=== PATIENT | male | born 1985 | race African-American/Black ===

== ENCOUNTER 2021-11-13 11:32 | Emergency (ER) | payer OTHER ==
[2021-11-13] MEDS: HYDROmorphone 1 MG/ML 1 ML SYRINGE IM STA (13:41)
[2021-11-13] MEDS: KETOROLAC 15 MG/ML 1 ML VIAL IM STA (13:42)
[2021-11-13] MEDS: dexAMETHasone 2 MG TAB PO STA (13:42)
--- NOTE | 2021-11-13 13:49 | ED ---
General Adult HPI - General Chief complaint: Back Pain/Injury Stated complaint: Back pain radiating to left left Time Seen by Provider: 11/13/21 13:05 Source: patient Mode of arrival: wheelchair Limitations: no limitations - History of Present Illness Initial comments: Patient is a 36-year-old male with past medical history of back pain who presents emergency Department with reported back pain. States he is under the care of Dr. Bowman. Has been seeing him since August. He was found to have a herniated disc in his lumbar spine. He has been following up Dr. Bowman and has been on steroids. States that he took a 9 day course of Decadron and it really helped his symptoms. He just finished a course of couple of days ago in his back pain has reoccurred. He denies any bowel or bladder incontinence or retention. No weakness in his lower extremities. Pain does radiate around to his groin and down the back of his leg. No fevers. Denies history of drug use. No known trauma. No other alleviating, precipitating or modifying factors - Related Data Previous Rx's Medication Instructions Recorded Acetaminophen-Codeine 300-30mg 1 tab PO Q4H PRN #18 tablet 11/13/21 [Tylenol #3] Dexamethasone [Decadron] 6 mg PO DAILY #5 tablet 11/13/21 Allergies Allergy/AdvReac Type Severity Reaction Status Date / Time No Known Allergies Allergy Verified 11/13/21 13:06 Review of Systems ROS Statement: Those systems with pertinent positive or pertinent negative responses have been documented in the HPI. ROS Other: All systems not noted in ROS Statement are negative. Past Medical History Additional Past Medical History / Comment(s): back pain History of Any Multi-Drug Resistant Organisms: None Reported Past Surgical History: No Surgical Hx Reported Past Psychological History: No Psychological Hx Reported Smoking Status: Current every day smoker Past Alcohol Use History: None Reported Past Drug Use History: None Reported General Exam Limitations: no limitations General appearance: alert, in no apparent distress Head exam: Present: atraumatic, normocephalic, normal inspection Eye exam: Present: normal appearance, PERRL, EOMI. Absent: scleral icterus, conjunctival injection, periorbital swelling ENT exam: Present: normal exam, mucous membranes moist Neck exam: Present: normal inspection. Absent: tenderness, meningismus, lymphadenopathy Respiratory exam: Present: normal lung sounds bilaterally. Absent: respiratory distress, wheezes, rales, rhonchi, stridor Cardiovascular Exam: Present: regular rate, normal rhythm, normal heart sounds. Absent: systolic murmur, diastolic murmur, rubs, gallop, clicks GI/Abdominal exam: Present: soft, normal bowel sounds. Absent: distended, tenderness, guarding, rebound, rigid Rectal exam: Present: normal rectal tone Extremities exam: Present: normal inspection, full ROM, normal capillary refill. Absent: tenderness, pedal edema, joint swelling, calf tenderness Back exam: Present: normal inspection, other (normal ROM however flexion of the right hip causes significant pain) Neurological exam: Present: alert, oriented X3, CN II-XII intact Psychiatric exam: Present: normal affect, normal mood Skin exam: Present: warm, dry, intact, normal color. Absent: rash Course Vital Signs 11/13/21 11/13/21 13:04 16:26 Temperature 98.2 F 98.0 F Pulse Rate 96 92 Respiratory 16 20 Rate Blood Pressure 133/85 136/81 O2 Sat by Pulse 100 98 Oximetry Medical Decision Making - Medical Decision Making On arrival patient is placed into room 18. History and physical exam is performed. He is given 10 mg dexamethasone, 1 mg of Dilaudid and 30 mg Toradol. He is sent for a CT of his spine which does demonstrate a large left paracentral disc herniation with extrusion. Causes mild to moderate spinal canal stenosis. Patient's symptoms are all on his right side. He has no bowel or bladder incontinence or retention. No bowel or bladder incontinence. Patient is reevaluated and reports to marked improvement in his pain. He will be sent home on a short course of steroids. Patient also provided with Tylenol threes. We recommended that he follow-up with Dr. Baltazar or Dr. Carrillo. Return for any new or worsening symptoms. Patient agreed to this and he was discharged home ambulatory in stable condition Disposition Clinical Impression: Lumbar back pain, Herniated disc Disposition: HOME SELF-CARE Condition: Stable Instructions (If sedation given, give patient instructions): Acute Low Back Pain (ED) Additional Instructions: Please follow up with the spine doctors within 1 week. Return to the emergency room for any new or worsening symptoms Prescriptions: Dexamethasone [Decadron] 6 mg PO DAILY #5 tablet Acetaminophen-Codeine 300-30mg [Tylenol #3] 1 tab PO Q4H PRN #18 tablet PRN Reason: pain Is patient prescribed a controlled substance at d/c from ED?: Yes When asked, does pt state using other controlled substances?: No If prescribed controlled substance>3 days was MAPS reviewed?: Prescribed <3 Days If opioid is for acute pain is fill amount 7 days or less?: Yes If Rx opioid, was Start Talking consent form obtained?: Yes Referrals: None,Stated [Primary Care Provider] - 1-2 days Tyron Carrillo, [Doctor of Osteopathic Medicine] - 1-2 days Cynthia Truong, [Doctor of Osteopathic Medicine] - 1-2 days
--- NOTE | 2021-11-13 14:30 | CT ---
EXAMINATION TYPE: CT lumbar spine wo con DATE OF EXAM: 11/13/2021 COMPARISON: None HISTORY: 36-year-old male with back pain Back pain TECHNIQUE: Contiguous axial scanning of the lumbar spine without IV contrast. Coronal and sagittal re constructions performed. CT DLP: 779.1 mGycm Automated exposure control for dose reduction was used. FINDINGS: Vertebral body heights are preserved and alignment is maintained. There is mild disc height loss at L5-S1 with a large left paracentral disc herniation/extrusion which causes mild to moderate canal stenosis, left lateral recess stenosis with complete effacement of the traversing left S1 nerve root and also displacement of the traversing left S2 nerve root. Mild overa ll left neuroforaminal stenosis. At L4-L5, there is minimal bulging disc without significant spinal canal or neuroforaminal stenosis. No acute fracture of the lumbar spine. IMPRESSION: AT L5-S1, LARGE LEFT PARACENTRAL DISC HERNIATION/EXTRUSION WHICH CAUSES MILD TO MODERATE SPINAL CANAL STENOSIS AND LEFT LATERAL RECESS STENOSIS. THIS RESULTS IN COMPLETE EFFACEMENT OF THE TRAVERSING LEF T S1 NERVE ROOT AND ALSO DISPLACEMENT OF THE TRAVERSING LEFT S2 NERVE ROOT. MILD OVERALL LEFT NEUROFO RAMINAL STENOSIS.
[2021-11-13] MEDS: ACET/COD 300 MG/30 MG STARTER PACK 6 TAB BTL PO STA (16:25)
[2021-11-13 16:27] VITALS: BP 136/81; PULSE 92; RESP 20; TEMP 98
== END 2021-11-13 16:27 | disposition home or self-care (01) ==
LOC: EC 11:32
DX: M51.26 Other intervertebral disc displacement, lumbar region (principal); F17.200 Nicotine dependence, unspecified, uncomplicated
CPT/HCPCS: 72131; 99283; 96372 ×2; J1170; J8540; J1885

== ENCOUNTER 2023-10-16 09:33 | Emergency (ER) | payer BC ==
--- NOTE | 2023-10-16 09:48 | ED ---
General Adult HPI - General Source: patient, RN notes reviewed Mode of arrival: ambulatory Limitations: no limitations <Anton Gill - Last Filed: 10/16/23 09:48> <Bautista Knight - Last Filed: 10/16/23 13:11> - General Stated complaint: right upper side pain Time Seen by Provider: 10/16/23 09:48 - History of Present Illness Initial comments: 38-year-old male presents emergency Department chief complaint right flank pain. Patient states has been bothersome for several days. Patient states it hurts when he takes a deep breath or moves. Denies any trauma no rashes patient has no history kidney stones denies any dysuria hematuria. Patient has a nausea vomiting. (Anton Gill) This is a 38-year-old male who presents to the emergency department complaining of left mid back pain. Patient states he bends twists or turns it hurts worse. 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 Patient denies any shortness of breath. Patient denies any chest pain. Patient denies any recent fever chills or cough per patient denies any dysuria hematuria urinary frequency. Patient denies any abdominal pain. Patient denies nausea vomiting diarrhea. (Bautista Knight) - Related Data Home Medications Medication Instructions Recorded Confirmed Naproxen Sodium [Aleve] 440 mg PO DAILY 10/16/23 10/16/23 buPROPion SR [Wellbutrin SR] 100 mg PO DAILY 10/16/23 10/16/23 Previous Rx's Medication Instructions Recorded Cyclobenzaprine [Flexeril] 10 mg PO TID #20 tab 10/16/23 Ketorolac [Toradol] 10 mg PO Q6HR #15 tab 10/16/23 Allergies Allergy/AdvReac Type Severity Reaction Status Date / Time No Known Allergies Allergy Verified 10/16/23 13:04 Review of Systems ROS Other: All systems not noted in ROS Statement are negative. <Anton Gill - Last Filed: 10/16/23 09:48> ROS Other: All systems not noted in ROS Statement are negative. <Bautista Knight - Last Filed: 10/16/23 13:11> ROS Statement: Those systems with pertinent positive or pertinent negative responses have been documented in the HPI. Past Medical History Additional Past Medical History / Comment(s): back pain History of Any Multi-Drug Resistant Organisms: None Reported Past Surgical History: No Surgical Hx Reported Past Psychological History: No Psychological Hx Reported Smoking Status: Current every day smoker Past Alcohol Use History: None Reported Past Drug Use History: None Reported <Anton Gill - Last Filed: 10/16/23 09:48> General Exam <Anton Gill - Last Filed: 10/16/23 09:48> <Bautista Knight - Last Filed: 10/16/23 13:11> - General Exam Comments Initial Comments: Visual Physical Exam Vital signs reviewed General: Well-appearing, nontoxic, no acute distress. Head: Normocephalic, atraumatic Eyes: PERRLA, EOMI ENT: Airway patent Chest: Nonlabored breathing Skin: No visual rash, normal skin tone Neuro: Alert and oriented 3 Musculoskeletal: No gross abnormalities (Anton Gill) GENERAL: Patient is well-developed and well-nourished. Patient is nontoxic and well- hydrated and is in mild distress. ENT: Neck is soft and supple. No significant lymphadenopathy is noted. Oropharynx is clear. Moist mucous membranes. Neck has full range of motion without eliciting any pain. EYES: The sclera were anicteric and conjunctiva were pink and moist. Extraocular movements were intact and pupils were equal round and reactive to light. Eyelids were unremarkable. PULMONARY: Unlabored respirations. Good breath sounds bilaterally. No audible rales rhonchi or wheezing was noted. CARDIOVASCULAR: There is a regular rate and rhythm without any murmurs gallops or rubs. ABDOMEN: Soft and nontender with normal bowel sounds. SKIN: Skin is clear with no lesions or rashes and otherwise unremarkable. NEUROLOGIC: Patient is alert and oriented x3. Cranial nerves II through XII are grossly intact. Motor and sensory are also intact. Normal speech, volume and content. Symmetrical smile. MUSCULOSKELETAL: Normal extremities with adequate strength and full range of motion. Patient has tenderness to palpation at about the CVA area on the right. Patient can increase the pain with bending or twisting. LYMPHATICS: No significant lymphadenopathy is noted PSYCHIATRIC: Normal psychiatric evaluation. (Bautista Knight) Course Vital Signs 10/16/23 09:48 Temperature 98.2 F Pulse Rate 47 L Respiratory 18 Rate Blood Pressure 111/55 O2 Sat by Pulse 100 Oximetry Medical Decision Making <Anton Gill - Last Filed: 10/16/23 09:48> - Lab Data Result diagrams: 10/16/23 10:38 10/16/23 10:38 <Bautista Knight - Last Filed: 10/16/23 13:11> - Medical Decision Making I completed the quick note portion of this chart signed Anton Gill PA-C (Anton Gill) Was pt. sent in by a medical professional or institution (, PA, [employer], urgent care, hospital, or intermediate...) When possible be specific @ -No Did you speak to anyone other than the patient for history (EMS, parent, family, police, friend...)? What history was obtained from this source @ -No Did you review nursing and triage notes (agree or disagree)? Why? @ -I reviewed and agree with nursing and triage notes Were old charts reviewed (outside hosp., previous admission, EMS record, old EKG, old radiological studies, urgent care reports/EKG's, intermediate records)? Report findings @ -No old charts were reviewed Differential Diagnosis (chest pain, altered mental status, abdominal pain women, abdominal pain men, vaginal bleeding, weakness, fever, dyspnea, syncope, h eadache, dizziness, GI bleed, back pain, seizure, CVA, palpatations, mental health, musculoskeletal)? @ -Differential Musculoskeletal Muscular strain, contusion, ligament sprain, fracture, arthritis, septic arthritis, bursitis, cellulitis, muscle spasm, nerve compression, DVT, arterial occlusion, herpes zoster, electrolyte abnormality, tumor.... This is not meant to be in all inclusive list EKG interpreted by me (3pts min.). @ -As above X-rays interpreted by me (1pt min.). @ -Chest x-ray shows no acute abnormality. KUB shows no acute abnormality CT interpreted by me (1pt min.). @ -None done U/S interpreted by me (1pt. min.). @ -None done What testing was considered but not performed or refused? (CT, X-rays, U/S, labs)? Why? @ -None What meds were considered but not given or refused? Why? @ -None Did you discuss the management of the patient with other professionals (professionals i.e. , PA, [employer], lab, RT, psych nurse, child welfare social worker, gas examiner, teacher, combatant diver officer, pillowcase maker)? Give summary @ -No Was smoking cessation discussed for >3mins.? @ -No Was critical care preformed (if so, how long)? @ -No Were there social determinants of health that impacted care today? How? (Homelessness, low income, unemployed, alcoholism, drug addiction, transportation, low edu. Level, literacy, decrease access to med. care, senior care, rehab)? @ -No Was there de-escalation of care discussed even if they declined (Discuss DNR or withdrawal of care, Hospice)? DNR status @ -No What co-morbidities impacted this encounter? (DM, HTN, Smoking, COPD, CAD, Cancer, CVA, ARF, Chemo, Hep., AIDS, mental health diagnosis, sleep apnea, morbid obesity)? @ -None Was patient admitted / discharged? Hospital course, mention meds given and route, prescriptions, significant lab abnormalities, going to OR and other per tinent info. @ -Lab work and urine AND back normal. Patient's x-rays were normal. Patient was given a shot of Toradol and Norflex in the emergency department. Patient was given the results of his tests and he agrees that he will try an anti- inflammatory muscle relaxant and will follow-up with his primary medical care doctor Undiagnosed new problem with uncertain prognosis? @ -No Drug Therapy requiring intensive monitoring for toxicity (Heparin, Nitro, Insulin, Cardizem)? @ -No Were any procedures done? @ -No Diagnosis/symptom? @ -Thoracic muscle strain Acute, or Chronic, or Acute on Chronic? @ -Acute Uncomplicated (without systemic symptoms) or Complicated (systemic symptoms)? @ -Uncomplicated Side effects of treatment? @ -No Exacerbation, Progression, or Severe Exacerbation? @ -No Poses a threat to life or bodily function? How? (Chest pain, [place], [place], pneumonia, PE, COPD, DKA, ARF, appy, cholecystitis, CVA, Diverticulitis, Homicidal, Suicidal, threat to staff... and all critical care pts) @ -No (Bautista Knight) - Lab Data Lab Results 11/27/23 11/27/23 11/27/23 Range/Units 10:38 10:38 11:49 WBC 4.5 (3.8-10.6) k/uL RBC 4.58 (4.30-5.90) m/uL Hgb 14.0 (13.0-17.5) gm/dL Hct 42.0 (39.0-53.0) % MCV 91.8 (80.0-100.0) fL MCH 30.7 (25.0-35.0) pg MCHC 33.4 (31.0-37.0) g/dL RDW 13.3 (11.5-15.5) % Plt Count 230 (150-450) k/uL MPV 7.6 Neutrophils % 58 % Lymphocytes % 33 % Monocytes % 4 % Eosinophils % 2 % Basophils % 1 % Neutrophils # 2.6 (1.3-7.7) k/uL Lymphocytes # 1.5 (1.0-4.8) k/uL Monocytes # 0.2 (0-1.0) k/uL Eosinophils # 0.1 (0-0.7) k/uL Basophils # 0.0 (0-0.2) k/uL Sodium 141 (137-145) mmol/L Potassium 4.7 (3.5-5.1) mmol/L Chloride 106 (98-107) mmol/L Carbon Dioxide 26 (22-30) mmol/L Anion Gap 9 mmol/L BUN 19 (9-20) mg/dL Creatinine 1.20 (0.66-1.25) mg/dL Est GFR (CKD-EPI)AfAm 88 (>60 ml/min/1.73 sqM) Est GFR (CKD-EPI)NonAf 76 (>60 ml/min/1.73 sqM) Glucose 94 (74-99) mg/dL Calcium 9.1 (8.4-10.2) mg/dL Total Bilirubin 0.5 (0.2-1.3) mg/dL AST 37 (17-59) U/L ALT 31 (4-49) U/L Alkaline Phosphatase 47 (38-126) U/L Total Protein 7.1 (6.3-8.2) g/dL Albumin 4.2 (3.5-5.0) g/dL Lipase 39 (23-300) U/L Urine Color Yellow Urine Appearance Clear (Clear) Urine pH 6.0 (5.0-8.0) Ur Specific [place] 1.029 (1.001-1.035) Urine Protein Negative (Negative) Urine Glucose (UA) Negative (Negative) Urine Ketones Negative (Negative) Urine Blood Negative (Negative) Urine Nitrite Negative (Negative) Urine Bilirubin Negative (Negative) Urine Urobilinogen <2.0 (<2.0) mg/dL Ur Leukocyte Esterase Negative (Negative) Disposition <Anton Gill - Last Filed: 10/16/23 09:48> Is patient prescribed a controlled substance at d/c from ED?: No Time of Disposition: 13:11 <Bautista Knight - Last Filed: 10/16/23 13:11> Clinical Impression: Thoracic back pain Disposition: HOME SELF-CARE Condition: Good Instructions (If sedation given, give patient instructions): Thoracic Pain (ED) Prescriptions: Cyclobenzaprine [Flexeril] 10 mg PO TID #20 tab Ketorolac [Toradol] 10 mg PO Q6HR #15 tab Referrals: Luis Hendricks DO [Primary Care Provider] - 1-2 days
[2023-10-16 09:57] VITALS: RESP 18
--- NOTE | 2023-10-16 10:35 | XR ---
EXAMINATION TYPE: XR KUB DATE OF EXAM: 10/16/2023 10:26 AM CLINICAL INDICATION:Male, 38 years old with history of abdominal pain; COMPARISON: None. TECHNIQUE: One radiographic view of the abdomen was obtained. FINDINGS: The bowel gas pattern is nonspecific without dilated loops of small or large bowel. There i s no evidence for organomegaly or pneumoperitoneum. The osseous structures are intact. No abnormal calcifications are present. Fecal material and gas are demonstrated throughout the colon and rectum. IMPRESSION: Nonspecific bowel gas pattern without radiographic evidence for acute process.
--- NOTE | 2023-10-16 10:51 | XR ---
EXAMINATION TYPE: XR chest 2V DATE OF EXAM: 10/16/2023 10:26 AM CLINICAL INDICATION:Male, 38 years old with history of pain; [facility] COMPARISON: Chest radiographs from TECHNIQUE: XR chest 2V Frontal and lateral views of the chest. FINDINGS: Lungs/Pleura: There is no evidence of pleural effusion, focal consolidation, or pneumothorax. Pulmonary vascularity: Unremarkable. Heart/mediastinum: Cardiomediastinal silhouette is unremarkable. Musculoskeletal: No acute osseous pathology. IMPRESSION: No acute cardiopulmonary disease/process.
[2023-10-16 11:04] LABS: Basophils % (A) 1 %; Eosinophils # (A) 0.1 k/uL (0-0.7); Eosinophils % (A) 2 %; Lymphocytes # (A) 1.5 k/uL (1.0-4.8); Lymphocytes % (A) 33 %; MCH 30.7 pg (25.0-35.0); MCHC 33.4 g/dL (31.0-37.0); MCV 91.8 fL (80.0-100.0); Mean Platelet Volume 7.6; Monocytes # (A) 0.2 k/uL (0-1.0); Monocytes % (A) 4 %; Neutrophils # (A) 2.6 k/uL (1.3-7.7); Neutrophils % (A) 58 %; Platelet Count 230 k/uL (150-450); RBC 4.58 m/uL (4.30-5.90); RDW 13.3 % (11.5-15.5); WBC 4.5 k/uL (3.8-10.6)
[2023-10-16 11:17] LABS: ALT 31 U/L (4-49); AST 37 U/L (17-59); African American GFR (CKD) 88 (>60 ml/min/1.73 sqM); Albumin 4.2 g/dL (3.5-5.0); Alkaline Phosphatase 47 U/L (38-126); Anion Gap 9 mmol/L; Blood Urea Nitrogen 19 mg/dL (9-20); Calcium 9.1 mg/dL (8.4-10.2); Carbon Dioxide 26 mmol/L (22-30); Chloride 106 mmol/L (98-107); Glucose 94 mg/dL (74-99); Lipase 39 U/L (23-300); Non-African American GFR(CKD) 76 (>60 ml/min/1.73 sqM); Potassium 4.7 mmol/L (3.5-5.1); Sodium 141 mmol/L (137-145); Total Bilirubin 0.5 mg/dL (0.2-1.3); Total Protein 7.1 g/dL (6.3-8.2)
[2023-10-16 12:05] LABS: Appearance,Urine Clear (Clear); Bilirubin,Urine Negative (Negative); Blood,Urine Negative (Negative); Color,Urine Yellow; Glucose,Urine (UA) Negative (Negative); Ketones,Urine Negative (Negative); Leukocyte Esterase,Urine Negative (Negative); Nitrite,Urine Negative (Negative); Protein,Urine Negative (Negative); Specific Gravity,Urine 1.029 (1.001-1.035); Urobilinogen,Urine <2.0 mg/dL (<2.0)
[2023-10-16] MEDS ORDERED: KETOROLAC 15 MG/ML 1 ML VIAL IM STA (12:27)
[2023-10-16] MEDS ORDERED: ORPHENADRINE 30 MG/ML 2 ML VIAL IM STA (12:27)
[2023-10-16 13:29] VITALS: BP 112/71; PULSE 60; TEMP 98.1
== END 2023-10-16 13:23 | disposition home or self-care (01) ==
LOC: EC 09:33
DX: M54.6 Pain in thoracic spine (principal); F17.200 Nicotine dependence, unspecified, uncomplicated; Z79.899 Other long term (current) drug therapy
CPT/HCPCS: 36415; 80053; 83690; 85025; 81003; 71046; 74018; 99284; 96372 ×2; J2360; J1885